=== PATIENT | male | born 1985 | race Caucasian/White ===

== ENCOUNTER 2016-07-20 20:14 | Emergency (ER) | payer MEDICAID ==
[2016-07-20] MEDS ORDERED: Ondansetron 4 MG/2 ML SDV IVPUSH ONE (22:27)
--- NOTE | 2016-07-20 22:28 | EDM.PDOC ---
ED HISTORY OF PRESENT ILLNESS - General Chief Complaint: Respiratory Problem Stated Complaint: FLU SYMPTOMS,FVER/CHILLS, VOMITING Time Seen by Provider: 07/20/16 22:27 Source: Reports: Patient, Family History Limitations: Reports: No limitations - History of Present Illness INITIAL COMMENTS - FREE TEXT/NARRATIVE: pt has been having marked vomiting and diarrhea. He has been spiking temps to 102. He has alot of body aches. Timing/Duration: Reports: Day(s):, Other ( pt got sick on thursday. ) Severity: moderate Location, General: Reports: abdomen, generalized Associated Symptoms: Reports: cough, fever/chills, loss of appetite, nausea/ vomiting, other ( diarhea) - Related Data Allergies/ADRs: Allergies Allergy/AdvReac Type Severity Reaction Status Date / Time Penicillins Allergy Hives Verified 01/07/16 19:43 Home Meds: Home Meds Ibuprofen 800 mg PO ASDIRECTED PRN 01/07/16 [History] Past Medical History Gastrointestinal History: Reports: GERD Musculoskeletal History: Reports: Arthritis, Back pain, chronic Neurological History: Reports: Concussion Psychiatric History: Reports: ADD, ADHD, Bipolar, Depression, Schizophrenia - Infectious Disease History Infectious Disease History: Reports: Chicken pox, Shingles Social & Family History - Tobacco Use Smoking Status *Q: Current Every Day Smoker Years of Tobacco use: 14 Packs/Tins Daily: 1 - Caffeine Use Caffeine Use: Reports: Soda - Alcohol Use Days Per Week of Alcohol Use: 1 Number of Drinks Per Day: 1 Total Drinks Per Week: 1 - Recreational Drug Use Recreational Drug Use: Yes Drug Use in Last 12 Months: Yes Recreational Drug Type: Reports: Marijuana/Hashish Recreational Drug Use Frequency: Monthly ED ROS GENERAL - Review of Systems Review Of Systems: See Below Constitutional: Reports: fever, chills, malaise, weakness HEENT: Reports: No symptoms Respiratory: Reports: No Symptoms Cardiovascular: Reports: No symptoms Endocrine: Reports: no symptoms GI/Abdominal: Reports: Diarrhea, Nausea, Vomiting Musculoskeletal: Reports: muscle pain, muscle stiffness ED EXAM, GENERAL - Physical Exam Exam: See Below Free Text/Narrative:: pt has a fever and total body pain Exam Limited By: No limitations General Appearance: alert, anxious, moderate distress Ears: normal TMs Nose: normal inspection Throat/Mouth: Normal inspection Head: atraumatic Neck: normal inspection Respiratory/Chest: no respiratory distress Cardiovascular: regular rate, rhythm, tachycardia GI/Abdominal: soft (Male) Exam: Deferred Rectal (Males) Exam: Deferred Back Exam: normal inspection Extremities: normal inspection Neurological: alert, oriented, normal cognition Course - Vital Signs Last Recorded V/S: Last Vital Signs Temp 37.2 C 07/21/16 01:35 Pulse 80 07/20/16 23:05 Resp 20 07/20/16 23:05 BP 124/51 L 07/20/16 23:05 Pulse Ox 96 07/20/16 23:05 - Orders/Labs/Meds Orders: Active Orders 24 hr Category Date Time Status CULTURE STREP A CONFIRMATION [] Stat Lab 07/21/16 00:54 Results STREP SCRN A RAPID W CULT CONF [RM] Stat Lab 07/21/16 00:54 Results UA W/MICROSCOPIC [URIN] Urgent Lab 07/20/16 22:26 Uncollected Sodium Chloride 0.9% [Normal Saline] 1,000 ml Med 07/20/16 22:30 Active IV ASDIRECTED Sodium Chloride 0.9% [Normal Saline] 1,000 ml Med 07/20/16 23:45 Active IV ASDIRECTED Medication Orders Sodium Chloride (Normal Saline) 1,000 mls @ 999 mls/hr IV ASDIRECTED [facility] Last Admin: 07/20/16 22:40 Dose: 999 mls/hr Sodium Chloride (Normal Saline) 1,000 mls @ 999 mls/hr IV ASDIRECTED [facility] Last Admin: 07/20/16 23:49 Dose: 999 mls/hr Labs: Laboratory Tests 07/20/16 07/20/16 Range/Units 22:43 22:43 WBC 5.0 (4.5-11.0) K/uL RBC 5.02 (4.30-5.90) M/uL Hgb 15.5 H (12.0-15.0) g/dL Hct 43.8 (40.0-54.0) % MCV 87 (80-98) fL MCH 31 (27-31) pg MCHC 35 (32-36) % Plt Count 163 (150-400) K/uL Neut % (Auto) 75 H (36-66) % Lymph % (Auto) 14 L (24-44) % [place] % (Auto) 10 H (2-6) % Eos % (Auto) 0 L (2-4) % Baso % (Auto) 0 (0-1) % Sodium 138 L (140-148) mmol/L Potassium 4.3 (3.6-5.2) mmol/L Chloride 100 (100-108) mmol/L Carbon Dioxide 28 (21-32) mmol/L Anion Gap 14.3 H (5.0-14.0) mmol/L BUN 13 (7-18) mg/dL Creatinine 1.1 (0.8-1.3) mg/dL Est Cr Clr Drug Dosing 105.65 mL/min Estimated GFR (MDRD) > 60 (>60) Glucose 111 H (74-106) mg/dL Calcium 8.7 (8.5-10.1) mg/dL Total Bilirubin 0.5 (0.2-1.0) mg/dL AST 17 (15-37) U/L ALT 18 (12-78) U/L Alkaline Phosphatase 94 (46-116) U/L Total Protein 7.7 (6.4-8.2) g/dL Albumin 4.1 (3.4-5.0) g/dL Globulin 3.6 H (2.3-3.5) g/dL Albumin/Globulin Ratio 1.1 L (1.2-2.2) Meds: Medications Generic Name Dose Route Start Last Admin Trade Name Freq PRN Reason Stop Dose Admin Sodium Chloride 1,000 mls @ 999 mls/hr 07/20/16 22:30 07/20/16 22:40 Normal Saline IV 999 mls/hr ASDIRECTED ANA Administration Sodium Chloride 1,000 mls @ 999 mls/hr 07/20/16 23:45 07/20/16 23:49 Normal Saline IV 999 mls/hr ASDIRECTED ANA Administration Discontinued Medications Generic Name Dose Route Start Last Admin Trade Name Freq PRN Reason Stop Dose Admin Acetaminophen 650 mg 07/20/16 23:08 07/20/16 23:13 Tylenol PO 07/20/16 23:09 650 mg NOW ONE Administration Ondansetron HCl 4 mg 07/20/16 22:27 07/20/16 22:44 Zofran IVPUSH 07/20/16 22:28 4 mg ONETIME ONE Administration - Re-Assessments/Exams Free Text/Narrative Re-Assessment/Exam: 07/21/16 02:26 pt had a normal wbc and had a pos influ b. He was given 2 liters of fluid and zoforan and he was given tylenol 650. he felt better. He was discharged with some subling zoforan. He had been ill too long to use tamaflu. Departure - Departure Time of Disposition: 01:30 Disposition: Home, Self-Care 01 Condition: fair Clinical Impression: Influenza B, Dehydration Instructions: Influenza, Adult, [id number], Dehydration, Adult Referrals: PCP,None [Primary Care Provider] - Forms: ED Department Discharge Care Plan Goals: ZOFORAN 4MG SUBLING Q6H PRN FOR NAUSEA, CLEAR LIQUID DIET AND ADVANCE DIET TOLERATED. TYLENOL 650 Q6H PRN FOR A TEMP. - My Orders Last 24 Hours: My Active Orders 07/20/16 22:26 UA W/MICROSCOPIC [URIN] Urgent 07/20/16 22:30 Sodium Chloride 0.9% [Normal Saline] 1,000 ml IV ASDIRECTED 07/20/16 23:45 Sodium Chloride 0.9% [Normal Saline] 1,000 ml IV ASDIRECTED 07/21/16 00:54 CULTURE STREP A CONFIRMATION [RM] Stat STREP SCRN A RAPID W CULT CONF [RM] Stat - Assessment/Plan Last 24 Hours: My Active Orders 07/20/16 22:26 UA W/MICROSCOPIC [URIN] Urgent 07/20/16 22:30 Sodium Chloride 0.9% [Normal Saline] 1,000 ml IV ASDIRECTED 07/20/16 23:45 Sodium Chloride 0.9% [Normal Saline] 1,000 ml IV ASDIRECTED 07/21/16 00:54 CULTURE STREP A CONFIRMATION [RM] Stat STREP SCRN A RAPID W CULT CONF [RM] Stat
[2016-07-20] MEDS ORDERED: Sodium Chloride 0.9% 1,000 ML IV SCH ×2 (22:30→23:45)
[2016-07-20 23:06] VITALS: BP 124/51
[2016-07-20] MEDS ORDERED: Acetaminophen 325 MG Tab PO ONE (23:08)
== END 2016-07-21 02:15 | disposition home or self-care (01) ==
LOC: JP.ED 20:14
DX: J10.1 Influenza due to other identified influenza virus with other respiratory manifestations (principal); E86.0 Dehydration; F17.210 Nicotine dependence, cigarettes, uncomplicated; Z88.0 Allergy status to penicillin
CPT/HCPCS: 36415; 80053; 85025; 87081; 87430; 87804; 96361; 96374; 99284; A9270; J2405; J7040

== ENCOUNTER 2016-11-03 12:45 | Emergency (ER) | payer MEDICAID ==
[2016-11-03 12:57] VITALS: BP 135/45
[2016-11-03] MEDS ORDERED: Ondansetron 4 MG/2 ML SDV ONE (12:58)
[2016-11-03] MEDS ORDERED: LORazepam 2 MG/ML MDV IVPUSH ONE (13:14)
[2016-11-03] MEDS ORDERED: Sodium Chloride 0.9% 1,000 ML IV ONE (13:14)
[2016-11-03] MEDS: Sodium Chloride 0.9% 10 ML Syringe FLUSH PRN ×2 (13:22→13:51)
[2016-11-03] MEDS: Lactated Ringers 1,000 ML IV SCH ×2 (13:23→13:52)
[2016-11-03] MEDS ORDERED: Pantoprazole 40 MG Vial ONE (13:30)
[2016-11-03] MEDS ORDERED: Ondansetron 4 MG/2 ML SDV IVPUSH ONE ×2 (13:31→14:54)
--- NOTE | 2016-11-03 13:40 | EDM.PDOC ---
ED HPI GENERAL MEDICAL PROBLEM - General Chief Complaint: Abdominal Pain Stated Complaint: VOMITING Time Seen by Provider: 11/03/16 13:08 Source of Information: Reports: Patient History Limitations: Reports: No Limitations - History of Present Illness INITIAL COMMENTS - FREE TEXT/NARRATIVE: Patient presents with acute onset of nausea, vomiting and abdominal pain since 2100 last night. He has had 6 emesis since that time. He last ate fried chicken from grocery store [employer]. Significant family history of Crohn's disease. Onset: Sudden Onset Date: 11/02/16 Onset Time: 21:00 Quality: Reports: Burning, Stabbing Severity: Severe Improves with: Reports: None, Other (Patient reports nausea and pain improves with vomiting. Patient continues to attempt to make himself vomit while in ER room. ) Worsens with: Reports: None Associated Symptoms: Reports: Fever/Chills, Nausea/Vomiting, Other. Denies: Headaches - Related Data Allergies Allergy/AdvReac Type Severity Reaction Status Date / Time Penicillins Allergy Hives Verified 01/07/16 19:43 Home Meds: Home Meds NK [No Known Home Meds] 11/03/16 [History] Past Medical History - Past Health History Medical/Surgical History: Denies Medical/Surgical History Gastrointestinal History: Reports: GERD Other Gastrointestinal History: Abdominal pain, GERD Musculoskeletal History: Reports: Arthritis, Back Pain, Chronic Neurological History: Reports: Concussion Psychiatric History: Reports: ADD, ADHD, Bipolar, Depression, Schizophrenia - Infectious Disease History Infectious Disease History: Reports: Chicken Pox, Shingles Social & Family History - Tobacco Use Smoking Status *Q: Current Every Day Smoker Years of Tobacco use: 20 Packs/Tins Daily: 1 - Caffeine Use Caffeine Use: Reports: Soda - Alcohol Use Days Per Week of Alcohol Use: 1 Number of Drinks Per Day: 1 Total Drinks Per Week: 1 - Recreational Drug Use Recreational Drug Use: Yes Drug Use in Last 12 Months: Yes Recreational Drug Type: Reports: Marijuana/Hashish Recreational Drug Use Frequency: Monthly ED ROS GENERAL - Review of Systems Review Of Systems: See Below Constitutional: Reports: Fever, Chills, Night Sweats, Diaphoresis HEENT: Reports: No Symptoms Respiratory: Denies: Shortness of Breath, Wheezing, Cough, Sputum Cardiovascular: Denies: Chest Pain, Blood Pressure Problem, Dyspnea on Exertion , Edema, Palpitations Endocrine: Reports: No Symptoms GI/Abdominal: Reports: Abdominal Pain, Nausea, Vomiting. Denies: Black Stool, Bloody Stool, Constipation, Diarrhea, Difficulty Swallowing, Distension, Hematemesis : Denies: Dysuria, Flank Pain, Frequency, Hematuria, Pain, Urgency Musculoskeletal: Reports: No Symptoms Skin: Reports: No Symptoms Neurological: Denies: Confusion, Dizziness, Headache, Numbness, Tingling, Weakness Psychiatric: Denies: Agitation, Anxiety Hematologic/Lymphatic: Reports: No Symptoms Immunologic: Reports: No Symptoms ED EXAM, GI/ABD - Physical Exam Exam: See Below Text/Narrative:: Landon is a 31 year old male presenting with severe abdominal pain, nausea, vomiting since yesterday at 2100. Exam Limited By: No Limitations General Appearance: Alert, Anxious, Moderate Distress, Severe Distress, Active Emesis Eyes: Bilateral: EOMI Ears: Normal External Exam, Normal Canal, Hearing Grossly Normal, Normal TMs Nose: Normal Inspection, Normal Mucosa, No Blood Throat/Mouth: Normal Inspection, Normal Lips, Normal Oropharynx, Normal Voice, No Airway Compromise, Other (Patient missing multiple teeth) Head: Atraumatic, Normocephalic Neck: Normal Inspection, Supple, Non-Tender, Full Range of Motion Respiratory/Chest: No Respiratory Distress, Lungs Clear, Normal Breath Sounds, No Accessory Muscle Use, Chest Non-Tender Cardiovascular: Normal Peripheral Pulses, Regular Rate, Rhythm, No Edema, No Gallop, No Murmur, No Rub GI/Abdominal: Normal Bowel Sounds, Soft, Non-Tender, No Organomegaly, No Abnormal Bruit, No Mass Back Exam: Normal Inspection, Full Range of Motion. No: CVA Tenderness (R), CVA Tenderness (L) Extremities: Normal Inspection, Normal Range of Motion, Non-Tender, No Pedal Edema, Normal Capillary Refill Neurological: Alert, Oriented, CN II-XII Intact, No Motor/Sensory Deficits Psychiatric: Anxious, Other (Hyperventilating at times, several attempts to make himself vomit. ) Skin Exam: Intact, Normal Color, No Rash, Diaphoretic. No: Ecchymosis, Erythema , Pallor, Petechiae, Rash Lymphatic: No Adenopathy Course - Vital Signs Last Recorded V/S: Last Vital Signs Temp 35.7 C 11/03/16 13:11 Pulse 91 11/03/16 13:11 Resp 18 11/03/16 13:11 BP 135/45 L 11/03/16 13:11 Pulse Ox 100 11/03/16 13:11 - Orders/Labs/Meds Orders: Active Orders 24 hr Category Date Time Status Saline Lock Insert [OM.PC] Routine Oth 11/03/16 13:14 Ordered Labs: Laboratory Tests 11/03/16 11/03/16 11/03/16 Range/Units 13:40 13:40 13:40 WBC 10.6 (4.5-11.0) K/uL RBC 4.85 (4.30-5.90) M/uL Hgb 15.4 H (12.0-15.0) g/dL Hct 42.5 (40.0-54.0) % MCV 88 (80-98) fL MCH 32 H (27-31) pg MCHC 36 (32-36) % Plt Count 191 (150-400) K/uL Neut % (Auto) 82 H (36-66) % Lymph % (Auto) 12 L (24-44) % [place] % (Auto) 4 (2-6) % Eos % (Auto) 1 L (2-4) % Baso % (Auto) 1 (0-1) % ESR 9 (0-20) mm/hr Sodium 140 (140-148) mmol/L Potassium 4.3 (3.6-5.2) mmol/L Chloride 104 (100-108) mmol/L Carbon Dioxide 28 (21-32) mmol/L Anion Gap 8.3 (5.0-14.0) mmol/L BUN 14 (7-18) mg/dL Creatinine 1.1 (0.8-1.3) mg/dL Est Cr Clr Drug Dosing 113.37 mL/min Estimated GFR (MDRD) > 60 (>60) Glucose 132 H (74-106) mg/dL Calcium 9.4 (8.5-10.1) mg/dL Total Bilirubin 0.9 D (0.2-1.0) mg/dL AST 11 L (15-37) U/L ALT 13 (12-78) U/L Alkaline Phosphatase 99 (46-116) U/L C-Reactive Protein (0.0-0.3) mg/dL Total Protein 7.6 (6.4-8.2) g/dL Albumin 4.2 (3.4-5.0) g/dL Globulin 3.4 (2.3-3.5) g/dL Albumin/Globulin Ratio 1.2 (1.2-2.2) Amylase (25-115) U/L Lipase (73-393) U/L 11/03/16 11/03/16 Range/Units 13:40 13:40 WBC (4.5-11.0) K/uL RBC (4.30-5.90) M/uL Hgb (12.0-15.0) g/dL Hct (40.0-54.0) % MCV (80-98) fL MCH (27-31) pg MCHC (32-36) % Plt Count (150-400) K/uL Neut % (Auto) (36-66) % Lymph % (Auto) (24-44) % [place] % (Auto) (2-6) % Eos % (Auto) (2-4) % Baso % (Auto) (0-1) % ESR (0-20) mm/hr Sodium (140-148) mmol/L Potassium (3.6-5.2) mmol/L Chloride (100-108) mmol/L Carbon Dioxide (21-32) mmol/L Anion Gap (5.0-14.0) mmol/L BUN (7-18) mg/dL Creatinine (0.8-1.3) mg/dL Est Cr Clr Drug Dosing mL/min Estimated GFR (MDRD) (>60) Glucose (74-106) mg/dL Calcium (8.5-10.1) mg/dL Total Bilirubin (0.2-1.0) mg/dL AST (15-37) U/L ALT (12-78) U/L Alkaline Phosphatase (46-116) U/L C-Reactive Protein 0.28 (0.0-0.3) mg/dL Total Protein (6.4-8.2) g/dL Albumin (3.4-5.0) g/dL Globulin (2.3-3.5) g/dL Albumin/Globulin Ratio (1.2-2.2) Amylase 96 (25-115) U/L Lipase 172 (73-393) U/L Meds: Medications Discontinued Medications Generic Name Dose Route Start Last Admin Trade Name Freq PRN Reason Stop Dose Admin Hydromorphone HCl 1 mg 11/03/16 14:50 11/03/16 15:04 Dilaudid IVPUSH 11/03/16 14:51 1 mg ONETIME ONE Administration Sodium Chloride 1,000 mls @ 999 mls/hr 11/03/16 13:14 Normal Saline IV 11/03/16 14:14 .BOLUS ONE Lactated Ringer's 1,000 mls @ 999 mls/hr 11/03/16 13:15 11/03/16 13:52 Ringers, Lactated IV 999 mls/hr BOLUS ANA Administration Lactated Ringer's 1,000 mls @ 999 mls/hr 11/03/16 14:36 Ringers, Lactated IV 11/03/16 15:36 BOLUS ONE Lorazepam 1 mg 11/03/16 13:14 11/03/16 13:23 Ativan IVPUSH 11/03/16 13:15 1 mg ONETIME ONE Administration Lorazepam 1 mg 11/03/16 16:22 11/03/16 16:49 Ativan IM 11/03/16 16:23 Not Given ONETIME ONE Ondansetron HCl Confirm 11/03/16 12:58 Zofran Administered 11/03/16 12:59 Dose 4 mg .ROUTE .STK-MED ONE Ondansetron HCl 4 mg 11/03/16 13:31 11/03/16 13:50 Zofran IVPUSH 11/03/16 13:32 4 mg ONETIME ONE Administration Ondansetron HCl 4 mg 11/03/16 14:54 11/03/16 15:04 Zofran IVPUSH 11/03/16 14:55 4 mg ONETIME ONE Administration Pantoprazole Sodium Confirm 11/03/16 13:30 Protonix Iv Administered 11/03/16 13:31 Dose 40 mg .ROUTE .STK-MED ONE Pantoprazole Sodium 40 mg 11/03/16 14:00 11/03/16 14:08 Protonix Iv IVPUSH 11/03/16 14:01 40 mg ONETIME ONE Administration Sodium Chloride 10 ml 11/03/16 13:14 11/03/16 13:51 Saline Flush FLUSH 10 ml ASDIRECTED PRN Administration Keep Vein Open - Re-Assessments/Exams Free Text/Narrative Re-Assessment/Exam: 11/03/16 13:05 Upon arrival, patient IV access obtain, IV fluids initiated, IV zofran and lorazepam administered. Free Text/Narrative Re-Assessment/Exam: 11/03/16 16:10 Nausea and vomiting improved. Abdominal pain resolved. Lab work reviewed with patient. He will be discharged to home. Departure - Departure Time of Disposition: 16:10 Disposition: Home, Self-Care 01 Condition: Fair Clinical Impression: Abdominal pain, Vomiting - Discharge Information Instructions: Abdominal Pain, Adult, [id number], Viral Gastroenteritis, Adult , [id number] Referrals: PCP,None [Primary Care Provider] - Forms: ED Department Discharge Additional Instructions: You suffered from nausea, vomiting and abdominal pain, most likely related to eating something that upset your stomach. All of your lab work was unremarkable. Eat a bland diet, drink plenty of fluids. Drink gatorade or powerade. It would be best for you to follow up and make an appointment to establish care with a primary provider for any other work-up of abdominal pain. Return for worsening, issues or concerns. Hard copy prescriptions for: zofran 4mg PO every 8 hours as needed for nausea hydrocodone 5/325mg one tablet three times a day for 2 days as needed for pain. - My Orders Last 24 Hours: My Active Orders 11/03/16 13:14 Saline Lock Insert [OM.PC] Routine - Assessment/Plan Last 24 Hours: My Active Orders 11/03/16 13:14 Saline Lock Insert [OM.PC] Routine Assessment:: Abdominal pain, vomiting. Plan: Nausea, vomiting and abdominal pain, most likely related to eating something that upset his stomach. All of lab work was unremarkable. Instructed to eat a bland diet, drink plenty of fluids. Drink gatorade or powerade. It would be best for him to follow up and make an appointment to establish care with a primary provider for any other work-up of abdominal pain. Return for worsening, issues or concerns. He was advised to stop use of marijuana, to not drink alcohol or use tobacco. Hard copy prescriptions for: zofran 4mg PO every 8 hours as needed for nausea #6 hydrocodone 5/325mg one tablet three times a day for 2 days as needed for pain # 6
[2016-11-03] MEDS ORDERED: Pantoprazole 40 MG Vial IVPUSH ONE (14:00)
[2016-11-03] MEDS ORDERED: Lactated Ringers 1,000 ML IV ONE (14:36)
[2016-11-03] MEDS ORDERED: HYDROmorphone 1 MG/ML Syringe IVPUSH ONE (14:50)
[2016-11-03] MEDS ORDERED: LORazepam 2 MG/ML MDV IM ONE (16:22)
== END 2016-11-03 16:56 | disposition home or self-care (01) ==
LOC: JP.ED 12:45
DX: R10.9 Unspecified abdominal pain (principal); R11.2 Nausea with vomiting, unspecified; F17.210 Nicotine dependence, cigarettes, uncomplicated; K21.9 Gastro-esophageal reflux disease without esophagitis; F90.9 Attention-deficit hyperactivity disorder, unspecified type; F32.9 Major depressive disorder, single episode, unspecified; Z88.0 Allergy status to penicillin
CPT/HCPCS: 36415; 80053; 82150; 83690; 85025; 85651; 86140; 96361; 96374; 96375; 96376; 99284; C9113; J1170; J2060; J2405; J7050; J7120; 99283

== ENCOUNTER 2017-07-31 08:00 | Emergency (ER) | payer MEDICAID ==
[2017-07-31] MEDS ORDERED: Sodium Chloride 0.9% 10 ML Syringe FLUSH PRN (08:35)
[2017-07-31] MEDS ORDERED: Prochlorperazine 10 MG/2 ML SDV IVPUSH ONE (08:36)
--- NOTE | 2017-07-31 08:39 | EDM.PDOC ---
ED HPI GENERAL MEDICAL PROBLEM - General Chief Complaint: Gastrointestinal Problem Stated Complaint: VOMITING/CHEST PAIN Time Seen by Provider: 07/31/17 08:19 Source of Information: Reports: Patient, Family, Old Records, RN Notes Reviewed History Limitations: Reports: No Limitations - History of Present Illness INITIAL COMMENTS - FREE TEXT/NARRATIVE: 32-year-old gentleman presents to the emergency department today complaint of nausea and vomiting, he believes this is related to a sandwich he had last night however other members who ate the same food or not ill. He does admit to cannabis use last night and admits to warm showers helping. He has used Zofran in the past to control his nausea and vomiting. He states he's had 6 or 7 episodes like this where he has been hospitalized for intractable nausea and vomiting. Upper Abdominal Pain Score (Numeric/FACES): 8 - Related Data Allergies Allergy/AdvReac Type Severity Reaction Status Date / Time Penicillins Allergy Hives Verified 07/31/17 08:09 Home Meds: Home Meds Omeprazole Magnesium [Prilosec Otc] 1 tab PO DAILY 07/31/17 [History] Ondansetron HCl [Ondansetron] 1 tab SL ASDIRECTED 07/31/17 [History] Past Medical History Cardiovascular History: Reports: Heart Murmur Gastrointestinal History: Reports: GERD Other Gastrointestinal History: GERD, story's esophagus Musculoskeletal History: Reports: Arthritis, Back Pain, Chronic, Fracture Neurological History: Reports: Concussion Psychiatric History: Reports: ADD, ADHD, Bipolar, Depression, Schizophrenia - Infectious Disease History Infectious Disease History: Reports: Chicken Pox, Shingles Social & Family History - Tobacco Use Smoking Status *Q: Heavy Tobacco Smoker Years of Tobacco use: 10 Packs/Tins Daily: 1 - Caffeine Use Caffeine Use: Reports: Soda - Alcohol Use Days Per Week of Alcohol Use: 1 Number of Drinks Per Day: 1 Total Drinks Per Week: 1 - Recreational Drug Use Recreational Drug Use: No Drug Use in Last 12 Months: Yes Recreational Drug Type: Reports: Marijuana/Hashish Recreational Drug Use Frequency: Monthly ED ROS GENERAL - Review of Systems Review Of Systems: See Below Constitutional: Denies: Fever, Chills HEENT: Reports: No Symptoms Respiratory: Reports: No Symptoms Cardiovascular: Reports: No Symptoms GI/Abdominal: Reports: Abdominal Pain, Nausea, Vomiting : Reports: No Symptoms Musculoskeletal: Reports: No Symptoms Skin: Reports: No Symptoms Neurological: Reports: No Symptoms ED EXAM, GI/ABD - Physical Exam Exam: See Below Exam Limited By: No Limitations General Appearance: Alert, Mild Distress Throat/Mouth: Normal Inspection, Normal Lips, Normal Gums, Normal Oropharynx, Normal Voice, No Airway Compromise, Other (No teeth upper) Head: Atraumatic, Normocephalic Neck: Normal Inspection, Supple, Non-Tender, Full Range of Motion Respiratory/Chest: No Respiratory Distress, Lungs Clear, Normal Breath Sounds, No Accessory Muscle Use, Chest Non-Tender Cardiovascular: Regular Rate, Rhythm, No Murmur GI/Abdominal Exam: Soft, Non-Tender Course - Vital Signs Last Recorded V/S: Last Vital Signs Temp 94.4 F L 07/31/17 08:05 Pulse 51 L 07/31/17 10:16 Resp 16 07/31/17 10:16 BP 131/82 07/31/17 10:16 Pulse Ox 93 L 07/31/17 10:16 - Orders/Labs/Meds Orders: Active Orders 24 hr Category Date Time Status Peripheral IV Care [RC] . DIRECTED Care 07/31/17 08:35 Active Lactated Ringers [Ringers, Lactated] 1,000 ml Med 07/31/17 08:45 Active IV ASDIRECTED Sodium Chloride 0.9% [Saline Flush] Med 07/31/17 08:35 Active 10 ml FLUSH ASDIRECTED PRN Peripheral IV Insertion Adult [OM.PC] Urgent Oth 07/31/17 08:35 Ordered Medication Orders Lactated Ringer's (Ringers, Lactated) 1,000 mls @ 999 mls/hr IV ASDIRECTED ANA Last Admin: 07/31/17 08:58 Dose: 999 mls/hr Sodium Chloride (Saline Flush) 10 ml FLUSH ASDIRECTED PRN PRN Reason: Keep Vein Open Last Admin: 07/31/17 08:58 Dose: 10 ml Labs: Laboratory Tests 07/31/17 07/31/17 07/31/17 Range/Units 08:51 08:51 08:51 WBC 14.9 H (4.5-11.0) K/uL RBC 5.08 (4.30-5.90) M/uL Hgb 16.2 H (12.0-15.0) g/dL Hct 44.6 (40.0-54.0) % MCV 88 (80-98) fL MCH 32 H (27-31) pg MCHC 36 (32-36) % Plt Count 255 (150-400) K/uL Neut % (Auto) 86 H (36-66) % Lymph % (Auto) 8 L (24-44) % [place] % (Auto) 5 (2-6) % Eos % (Auto) 1 L (2-4) % Baso % (Auto) 0 (0-1) % Sodium 143 (140-148) mmol/L Potassium 4.2 (3.6-5.2) mmol/L Chloride 103 (100-108) mmol/L Carbon Dioxide 27 (21-32) mmol/L Anion Gap 12.8 (5.0-14.0) mmol/L BUN 15 (7-18) mg/dL Creatinine 1.3 (0.8-1.3) mg/dL Est Cr Clr Drug Dosing 95.03 mL/min Estimated GFR (MDRD) > 60 (>60) Glucose 147 H (74-106) mg/dL Lactic Acid 3.1 H (0.4-2.0) mmol/L Calcium 9.4 (8.5-10.1) mg/dL Total Bilirubin 0.6 (0.2-1.0) mg/dL AST 14 L (15-37) U/L ALT 17 (12-78) U/L Alkaline Phosphatase 113 (46-116) U/L Total Protein 7.6 (6.4-8.2) g/dL Albumin 4.4 (3.4-5.0) g/dL Globulin 3.2 (2.3-3.5) g/dL Albumin/Globulin Ratio 1.4 (1.2-2.2) Lipase 95 (73-393) U/L Meds: Medications Generic Name Dose Route Start Last Admin Trade Name Freq PRN Reason Stop Dose Admin Lactated Ringer's 1,000 mls @ 999 mls/hr 07/31/17 08:45 07/31/17 08:58 Ringers, Lactated IV 999 mls/hr ASDIRECTED ANA Administration Sodium Chloride 10 ml 07/31/17 08:35 07/31/17 08:58 Saline Flush FLUSH 10 ml ASDIRECTED PRN Administration Keep Vein Open Discontinued Medications Generic Name Dose Route Start Last Admin Trade Name Abby PRN Reason Stop Dose Admin Lactated Ringer's 1,000 mls @ 999 mls/hr 07/31/17 10:02 07/31/17 10:15 Ringers, Lactated IV 07/31/17 11:02 999 mls/hr BOLUS ONE Administration Ketorolac Tromethamine 30 mg 07/31/17 10:02 07/31/17 10:13 Toradol IVPUSH 07/31/17 10:03 30 mg ONETIME ONE Administration Lorazepam 1 mg 07/31/17 10:02 07/31/17 10:12 Ativan IVPUSH 07/31/17 10:03 1 mg ONETIME ONE Administration Ondansetron HCl 4 mg 07/31/17 09:30 07/31/17 09:44 Zofran IVPUSH 07/31/17 09:31 4 mg ONETIME ONE Administration Prochlorperazine Edisylate 5 mg 07/31/17 08:36 07/31/17 08:55 Compazine IVPUSH 07/31/17 08:37 5 mg ONETIME ONE Administration Departure - Departure Time of Disposition: 11:23 Disposition: Home, Self-Care 01 Condition: Fair Clinical Impression: Cyclical vomiting Qualifiers: Vomiting Intractability: non-intractable Nausea presence: with nausea Qualified Code(s): G43.A0 - Cyclical vomiting, not intractable - Discharge Information Referrals: PCP,None [Primary Care Provider] - Forms: ED Department Discharge Additional Instructions: Use Zofran as needed to control nausea and vomiting symptoms, Please followup with your primary care provider in 3-5 days if not better, please call return to the emergency department with worsening of symptoms. - My Orders Last 24 Hours: My Active Orders 07/31/17 08:35 Peripheral IV Care [RC] . DIRECTED Sodium Chloride 0.9% [Saline Flush] 10 ml FLUSH ASDIRECTED PRN Peripheral IV Insertion Adult [OM.PC] Urgent 07/31/17 08:45 Lactated Ringers [Ringers, Lactated] 1,000 ml IV ASDIRECTED - Assessment/Plan Last 24 Hours: My Active Orders 07/31/17 08:35 Peripheral IV Care [RC] . DIRECTED Sodium Chloride 0.9% [Saline Flush] 10 ml FLUSH ASDIRECTED PRN Peripheral IV Insertion Adult [OM.PC] Urgent 07/31/17 08:45 Lactated Ringers [Ringers, Lactated] 1,000 ml IV ASDIRECTED Plan: Assessment Acuity = acute Site and laterality = cannabis cyclical vomiting syndrome Etiology = THC Manifestations = nausea and vomiting generalized abdominal pain Location of injury = Home Lab values = WBC elevated at 14.9 consistent with leukocytosis, lactic acid elevated at 3.1 consistent lactic acidosis Plan He had good improvement 2 L of lactated Ringer's, 1 mg Ativan, 4 mg Zofran, 5 mg Compazine. He will be discharged home with Zofran 4 mg ODT 1 tablet by mouth every 8 hours when necessary total #10, also counseled him on cannabis use This note was dictated using [employer] voice recognition software please call with any questions on syntax or marimar.
[2017-07-31] MEDS ORDERED: Lactated Ringers 1,000 ML IV SCH (08:45)
[2017-07-31] MEDS ORDERED: Ondansetron 4 MG/2 ML SDV IVPUSH ONE (09:30)
[2017-07-31] MEDS ORDERED: LORazepam 2 MG/ML SDV IVPUSH ONE (10:02)
[2017-07-31] MEDS ORDERED: Ketorolac 30 MG/ML SDV IVPUSH ONE (10:02)
[2017-07-31] MEDS ORDERED: Lactated Ringers 1,000 ML IV ONE (10:02)
[2017-07-31 11:41] VITALS: BP 129/80
== END 2017-07-31 11:42 | disposition home or self-care (01) ==
LOC: JP.ED 08:00
DX: G43.A0 Cyclical vomiting, in migraine, not intractable (principal); K21.9 Gastro-esophageal reflux disease without esophagitis; F17.210 Nicotine dependence, cigarettes, uncomplicated; Z88.0 Allergy status to penicillin; Z79.899 Other long term (current) drug therapy
CPT/HCPCS: 36415; 80053; 83605; 83690; 85025; 96361; 96374; 96375; 99285; J0780; J1885; J2060; J2405; J7050; J7120

== ENCOUNTER 2017-07-31 21:33 | Emergency (ER) | payer MEDICAID ==
[2017-07-31] MEDS ORDERED: LORazepam 2 MG/ML SDV IVPUSH ONE (21:58)
[2017-07-31] MEDS ORDERED: Metoclopramide 10 MG/2 ML SDV IVPUSH ONE (21:58)
[2017-07-31] MEDS ORDERED: Alum Hydrox/Mag Hydrox/Simeth 15 ML, Lidocaine 2% 15 ML PO ONE ×2 (21:58)
[2017-07-31] MEDS ORDERED: Sodium Chloride 0.9% 1,000 ML IV SCH (22:00)
--- NOTE | 2017-07-31 22:00 | EDM.PDOC ---
ED HPI GENERAL MEDICAL PROBLEM - General Chief Complaint: Abdominal Pain Stated Complaint: illness Time Seen by Provider: 07/31/17 21:45 Source of Information: Reports: Patient, Family History Limitations: Reports: No Limitations - History of Present Illness INITIAL COMMENTS - FREE TEXT/NARRATIVE: 32-year-old male with chronic cyclic vomiting syndrome was treated earlier today but symptoms have returned and he is very uncomfortable. Actively retching , stomach cramps, very anxious. No fever. Severity: Moderate Associated Symptoms: Reports: Nausea/Vomiting Treatments [employer]: Reports: Other (see below) (Was in the emergency room earlier and obtained IV fluids, Ativan and pain control) abdominal pain Pain Score (Numeric/FACES): 9 - Related Data Allergies Allergy/AdvReac Type Severity Reaction Status Date / Time Penicillins Allergy Hives Verified 07/31/17 21:46 Home Meds: Home Meds Omeprazole Magnesium [Prilosec Otc] 20 mg PO DAILY 07/31/17 [History] Ondansetron HCl [Ondansetron] 4 tab SL ASDIRECTED 07/31/17 [History] Past Medical History Cardiovascular History: Reports: Heart Murmur Gastrointestinal History: Reports: GERD Other Gastrointestinal History: GERD, story's esophagus Musculoskeletal History: Reports: Arthritis, Back Pain, Chronic, Fracture Neurological History: Reports: Concussion Psychiatric History: Reports: ADD, ADHD, Bipolar, Depression, Schizophrenia - Infectious Disease History Infectious Disease History: Reports: Chicken Pox, Shingles Social & Family History - Tobacco Use Smoking Status *Q: Heavy Tobacco Smoker Years of Tobacco use: 10 Packs/Tins Daily: 1 - Caffeine Use Caffeine Use: Reports: Soda - Alcohol Use Days Per Week of Alcohol Use: 1 Number of Drinks Per Day: 1 Total Drinks Per Week: 1 - Recreational Drug Use Recreational Drug Use: Yes Drug Use in Last 12 Months: Yes Recreational Drug Type: Reports: Marijuana/Hashish Recreational Drug Use Frequency: Monthly ED ROS GENERAL - Review of Systems Review Of Systems: See Below Constitutional: Reports: Chills, Malaise HEENT: Reports: No Symptoms Respiratory: Denies: Shortness of Breath Cardiovascular: Denies: Chest Pain GI/Abdominal: Reports: Abdominal Pain, Decreased Appetite, Nausea, Vomiting : Reports: No Symptoms Skin: Reports: No Symptoms Neurological: Reports: No Symptoms. Denies: Headache ED EXAM, GI/ABD - Physical Exam Exam: See Below Exam Limited By: No Limitations General Appearance: Moderate Distress Eyes: Bilateral: Normal Appearance (Well-hydrated, no jaundice) Respiratory/Chest: No Respiratory Distress, Lungs Clear Cardiovascular: Regular Rate, Rhythm. No: Tachycardia GI/Abdominal Exam: Tender (Markedly tender with palpation with diffuse guarding of the entire abdomen), Abnormal Bowel Sounds (Bowel sounds are hypoactive) Neurological: Alert Psychiatric: Anxious Skin Exam: Warm, Dry Course - Vital Signs Last Recorded V/S: Last Vital Signs Temp 97.5 F 08/01/17 00:51 Pulse 69 08/01/17 00:51 Resp 28 H 07/31/17 21:47 BP 94/50 L 08/01/17 00:51 Pulse Ox 96 08/01/17 00:51 - Orders/Labs/Meds Orders: Active Orders 24 hr Category Date Time Status Sodium Chloride 0.9% [Normal Saline] 1,000 ml Med 07/31/17 22:00 Active IV ASDIRECTED Medication Orders Sodium Chloride (Normal Saline) 1,000 mls @ 1,000 mls/hr IV ASDIRECTED ANA Last Admin: 07/31/17 22:04 Dose: 1,000 mls/hr Meds: Medications Generic Name Dose Route Start Last Admin Trade Name Freq PRN Reason Stop Dose Admin Sodium Chloride 1,000 mls @ 1,000 mls/hr 07/31/17 22:00 07/31/17 22:04 Normal Saline IV 1,000 mls/hr ASDIRECTED ANA Administration Discontinued Medications Generic Name Dose Route Start Last Admin Trade Name Freq PRN Reason Stop Dose Admin Al Hydroxide/Mg Hydroxide 15 0 ml 07/31/17 21:58 07/31/17 22:17 ml/ Lidocaine HCl 15 ml PO 07/31/17 21:59 30 ml ONETIME ONE Administration Hydromorphone HCl 1 mg 07/31/17 22:01 07/31/17 22:25 Dilaudid IVPUSH 07/31/17 22:02 1 mg ONETIME ONE Administration Lorazepam 1 mg 07/31/17 21:58 07/31/17 22:19 Ativan IVPUSH 07/31/17 21:59 1 mg ONETIME ONE Administration Metoclopramide HCl 10 mg 07/31/17 21:58 07/31/17 22:12 Reglan IVPUSH 07/31/17 21:59 10 mg ONETIME ONE Administration - Re-Assessments/Exams Free Text/Narrative Re-Assessment/Exam: 08/01/17 01:27 Labs were not repeated from earlier. An IV was started, the patient was given 1 L of normal saline along with 1 mg of IV Dilaudid, 1 mg of IV Ativan, and 10 mg of IV Reglan. Patient fell asleep and slept soundly for the next 2 hours and was nearly asymptomatic when he awoke. Departure - Departure Time of Disposition: 01:28 Disposition: Home, Self-Care 01 Condition: Good Clinical Impression: Cyclical vomiting Qualifiers: Vomiting Intractability: non-intractable Nausea presence: with nausea Qualified Code(s): G43.A0 - Cyclical vomiting, not intractable - Discharge Information Instructions: Nausea and Vomiting, Adult, [id number] Referrals: PCP,None [Primary Care Provider] - Forms: ED Department Discharge Care Plan Goals: Consider obtaining regular provider here in town, call for an appointment next week. Discussed the possibility of amitriptyline for preventative treatment. - My Orders Last 24 Hours: My Active Orders 07/31/17 22:00 Sodium Chloride 0.9% [Normal Saline] 1,000 ml IV ASDIRECTED - Assessment/Plan Last 24 Hours: My Active Orders 07/31/17 22:00 Sodium Chloride 0.9% [Normal Saline] 1,000 ml IV ASDIRECTED
[2017-07-31] MEDS ORDERED: HYDROmorphone 1 MG/ML Syringe IVPUSH ONE (22:01)
[2017-08-01 00:52] VITALS: BP 94/50
== END 2017-08-01 01:30 | disposition home or self-care (01) ==
LOC: JP.ED 21:33
DX: G43.A0 Cyclical vomiting, in migraine, not intractable (principal); K21.9 Gastro-esophageal reflux disease without esophagitis; F17.210 Nicotine dependence, cigarettes, uncomplicated; F31.9 Bipolar disorder, unspecified; F90.9 Attention-deficit hyperactivity disorder, unspecified type; Z88.0 Allergy status to penicillin; Z79.899 Other long term (current) drug therapy
CPT/HCPCS: 96361; 96374; 96375; 99284; A9270; J1170; J2060; J2765; J7040

== ENCOUNTER 2018-07-13 06:47 | Emergency (ER) | payer MEDICAID ==
[2018-07-13 07:03] VITALS: BP 124/87
[2018-07-13] MEDS ORDERED: Metoclopramide 10 MG/2 ML SDV IVPUSH ONE (07:21)
[2018-07-13] MEDS ORDERED: LORazepam 2 MG/ML SDV IVPUSH ONE (07:21)
--- NOTE | 2018-07-13 07:29 | EDM.PDOC ---
ED HPI GENERAL MEDICAL PROBLEM - General Chief Complaint: Gastrointestinal Problem Stated Complaint: HEADACHE,DEHYDRATION Time Seen by Provider: 07/13/18 07:18 Source of Information: Reports: Patient History Limitations: Reports: No Limitations - History of Present Illness INITIAL COMMENTS - FREE TEXT/NARRATIVE: 33-year-old male with cyclic vomiting syndrome has had symptoms for the last 48 hours. They can be brought on by stress, and he has had a "hard winter" losing his home and car. [place]. He has not used any marijuana or other street drugs for the past month. He feels feverish and chilled, no diarrhea. Main concern is persistent abdominal cramps and vomiting over the past 36 hours. Onset: Gradual Duration: Hour(s): (36 hours) Location: Reports: Abdomen Associated Symptoms: Reports: Fever/Chills, Loss of Appetite, Malaise, Nausea/ Vomiting, Weakness Abdomen Pain Score (Numeric/FACES): 8 - Related Data Allergies Allergy/AdvReac Type Severity Reaction Status Date / Time Penicillins Allergy Hives Verified 07/31/17 21:46 Home Meds: Home Meds Omeprazole Magnesium [Prilosec Otc] 20 mg PO DAILY 07/31/17 [History] Past Medical History Cardiovascular History: Reports: Heart Murmur Gastrointestinal History: Reports: GERD Other Gastrointestinal History: GERD, story's esophagus Musculoskeletal History: Reports: Arthritis, Back Pain, Chronic, Fracture Neurological History: Reports: Concussion Psychiatric History: Reports: ADD, ADHD, Bipolar, Depression, Schizophrenia - Infectious Disease History Infectious Disease History: Reports: Chicken Pox, Shingles Social & Family History - Tobacco Use Smoking Status *Q: Current Every Day Smoker Years of Tobacco use: 20 Packs/Tins Daily: 0.5 - Caffeine Use Caffeine Use: Reports: Coffee, Soda - Recreational Drug Use Recreational Drug Use: Yes Recreational Drug Type: Reports: Marijuana/Hashish ED ROS GENERAL - Review of Systems Review Of Systems: See Below Constitutional: Reports: Fever, Chills, Malaise, Weakness, Decreased Appetite HEENT: Reports: No Symptoms Respiratory: Denies: Shortness of Breath, Cough Cardiovascular: Denies: Chest Pain GI/Abdominal: Reports: Abdominal Pain, Nausea, Vomiting. Denies: Constipation, Diarrhea : Reports: No Symptoms Musculoskeletal: Reports: Other (Some generalized body aches) Skin: Reports: No Symptoms Neurological: Reports: Headache ED EXAM, GI/ABD - Physical Exam Exam: See Below Exam Limited By: No Limitations General Appearance: Alert, Mild Distress (Looks fairly uncomfortable, intermittent active retching) Eyes: Bilateral: Normal Appearance (Hydration appears adequate, no jaundice) Throat/Mouth: Normal Inspection Head: Atraumatic Neck: Supple Respiratory/Chest: No Respiratory Distress, Lungs Clear Cardiovascular: Regular Rate, Rhythm. No: Tachycardia GI/Abdominal Exam: Normal Bowel Sounds, Tender (Very tender to palpation, especially across the upper abdomen with mild guarding) Extremities: No: Pedal Edema Neurological: Alert, Oriented Psychiatric: Depressed Mood, Flat Affect Skin Exam: Warm, Dry Course - Vital Signs Last Recorded V/S: Last Vital Signs Temp 94.2 F L 07/13/18 07:07 Pulse 97 07/13/18 07:07 Resp 18 07/13/18 07:07 BP 124/87 07/13/18 07:07 Pulse Ox 98 07/13/18 07:07 - Orders/Labs/Meds Labs: Laboratory Tests 07/13/18 07/13/18 Range/Units 07:30 07:30 WBC 7.5 (4.5-11.0) K/uL RBC 5.54 (4.30-5.90) M/uL Hgb 16.7 H (12.0-15.0) g/dL Hct 48.2 (40.0-54.0) % MCV 87 (80-98) fL MCH 30 (27-31) pg MCHC 35 (32-36) % Plt Count 214 (150-400) K/uL Neut % (Auto) 78 H (36-66) % Lymph % (Auto) 9 L (24-44) % [place] % (Auto) 12 H (2-6) % Eos % (Auto) 0 L (2-4) % Baso % (Auto) 0 (0-1) % Sodium 133 L (140-148) mmol/L Potassium 5.3 H (3.6-5.2) mmol/L Chloride 94 L (100-108) mmol/L Carbon Dioxide 29 (21-32) mmol/L Anion Gap 15.3 H (5.0-14.0) mmol/L BUN 17 (7-18) mg/dL Creatinine 1.1 (0.8-1.3) mg/dL Est Cr Clr Drug Dosing 102.23 mL/min Estimated GFR (MDRD) > 60 (>60) Glucose 118 H (74-106) mg/dL Calcium 10.2 H (8.5-10.1) mg/dL Lipase 274 (73-393) U/L Meds: Medications Discontinued Medications Generic Name Dose Route Start Last Admin Trade Name Abby PRN Reason Stop Dose Admin Sodium Chloride 1,000 mls @ 1,000 mls/hr 07/13/18 07:30 07/13/18 08:46 Normal Saline IV 1,000 mls/hr ASDIRECTED ANA Administration Sodium Chloride 1,000 mls @ 1,000 mls/hr 07/13/18 08:45 Normal Saline IV ASDIRECTED ANA Lorazepam 1 mg 07/13/18 07:21 07/13/18 07:40 Ativan IVPUSH 07/13/18 07:22 1 mg ONETIME ONE Administration Metoclopramide HCl 10 mg 07/13/18 07:21 07/13/18 07:40 Reglan IVPUSH 07/13/18 07:22 10 mg ONETIME ONE Administration - Re-Assessments/Exams Free Text/Narrative Re-Assessment/Exam: 07/13/18 07:28 IV was started, patient will be given 1 L normal saline, 1 mg of Ativan, and 10 mg of Reglan. This is very similar to past treatments that have worked for him, I did see this patient one year ago. CBC BMP and lipase were drawn to rule out pancreatitis or other more serious issue. 07/13/18 09:16 Labs returned reassuring, white count was normal lipase normal. Patient fell asleep after the medications and slept soundly, while he was sleeping he was given 2 L of normal saline. 07/13/18 09:44 After the second liter fluid the patient woke up and felt much better. He'll be discharged. Departure - Departure Time of Disposition: 09:51 Disposition: Home, Self-Care 01 Condition: Good Clinical Impression: Nausea and vomiting in adult - Discharge Information Instructions: Nausea and Vomiting, Adult Referrals: PCP,None [Primary Care Provider] - Forms: ED Department Discharge Care Plan Goals: Advance diet slowly today and increase activity as tolerated. Return anytime if worsening.
[2018-07-13] MEDS: Sodium Chloride 0.9% 1,000 ML IV SCH ×2 (07:39→08:46)
[2018-07-13] MEDS ORDERED: Sodium Chloride 0.9% 1,000 ML IV SCH (08:45)
== END 2018-07-13 10:06 | disposition home or self-care (01) ==
LOC: JP.ED 06:47
DX: R11.2 Nausea with vomiting, unspecified (principal); Z88.0 Allergy status to penicillin; Z79.899 Other long term (current) drug therapy; F17.210 Nicotine dependence, cigarettes, uncomplicated
CPT/HCPCS: 36415; 80048; 83690; 85025; 96361; 96374; 96375; 99284; J2060; J2765; J7030

== ENCOUNTER 2021-03-21 16:59 | Emergency (ER) | payer MEDICAID ==
[2021-03-21] MEDS ORDERED: Sodium Chloride 0.9% 10 ML Syringe FLUSH PRN (17:03)
[2021-03-21] MEDS ORDERED: fentaNYL 100 MCG/2 ML SDV IVPUSH ONE (17:03)
[2021-03-21] MEDS ORDERED: LORazepam 2 MG/ML SDV IVPUSH ONE (17:04)
[2021-03-21 17:07] VITALS: BP 118/73; PULSE 94
--- NOTE | 2021-03-21 17:07 | EDM.PDOC ---
ED HPI GENERAL MEDICAL PROBLEM - General Stated Complaint: HEADACHE'S Time Seen by Provider: 03/21/21 17:02 Source of Information: Reports: Patient, RN Notes Reviewed History Limitations: Reports: No Limitations - History of Present Illness INITIAL COMMENTS - FREE TEXT/NARRATIVE: 35-year-old gentleman presents emergency department day complaint of worst headache of his life, states just awoke with this headache started vomiting. Was feeling fine yesterday no other complaints he is quite anxious about needles - Related Data Allergies Allergy/AdvReac Type Severity Reaction Status Date / Time Penicillins Allergy Hives Verified 07/31/17 21:46 Home Meds: Home Meds Omeprazole Magnesium [Prilosec Otc] 20 mg PO DAILY 07/31/17 [History] Past Medical History Cardiovascular History: Reports: Heart Murmur Gastrointestinal History: Reports: GERD Other Gastrointestinal History: GERD, story's esophagus Musculoskeletal History: Reports: Arthritis, Back Pain, Chronic, Fracture Neurological History: Reports: Concussion Psychiatric History: Reports: ADD, ADHD, Bipolar, Depression, Schizophrenia - Infectious Disease History Infectious Disease History: Reports: Chicken Pox, Shingles Social & Family History - Caffeine Use Caffeine Use: Reports: Coffee, Soda ED ROS GENERAL - Review of Systems Review Of Systems: See Below Constitutional: Reports: No Symptoms HEENT: Reports: No Symptoms Respiratory: Reports: No Symptoms Cardiovascular: Reports: No Symptoms GI/Abdominal: Reports: No Symptoms Neurological: Reports: Headache Psychiatric: Reports: Anxiety - Physical Exam Exam: See Below Exam Limited By: No Limitations General Appearance: Alert, Mild Distress Eye Exam: Bilateral Eye: EOMI, Normal Fundi, PERRL Head Exam: Atraumatic, Normocephalic Neck: Normal Inspection, Supple, Non-Tender, Full Range of Motion Respiratory/Chest: No Respiratory Distress, Lungs Clear, Normal Breath Sounds, No Accessory Muscle Use, Chest Non-Tender Cardiovascular: Regular Rate, Rhythm, No Murmur GI/Abdominal: Soft, Non-Tender Neuro Exam (Abbreviated): Alert, Oriented, CN II-XII Intact, Normal Cognition, Normal Gait, No Motor/Sensory Deficits Course - Vital Signs Last Recorded V/S: Last Vital Signs Temp 100.4 F 03/21/21 17:03 Pulse 94 03/21/21 17:03 Resp 22 H 03/21/21 17:03 BP 118/73 03/21/21 17:03 Pulse Ox 100 11/25/21 17:03 - Orders/Labs/Meds Orders: Active Orders 24 hr Category Date Time Status Peripheral IV Care [RC] . DIRECTED Care 03/21/21 17:04 Active DRUG SCREEN, URINE [URCHEM] Stat Lab 03/21/21 17:08 Ordered Sodium Chloride 0.9% [Saline Flush] Med 03/21/21 17:03 Active 10 ml FLUSH ASDIRECTED PRN Isolation [COMM] Stat Oth 03/21/21 17:05 Ordered Peripheral IV Insertion Adult [OM.PC] Urgent Oth 03/21/21 17:03 Ordered Medication Orders Sodium Chloride (Sodium Chloride 0.9% 10 Ml Syringe) 10 ml FLUSH ASDIRECTED PRN PRN Reason: Keep Vein Open Last Admin: 03/21/21 17:16 Dose: 10 ml Documented by: ANITRA Labs: Laboratory Tests 03/21/21 03/21/21 03/21/21 Range/Units 17:03 17:03 17:03 WBC 7.7 (4.5-11.0) K/uL RBC 5.04 (4.30-5.90) M/uL Hgb 15.5 H (12.0-15.0) g/dL Hct 43.7 (40.0-54.0) % MCV 87 (80-98) fL MCH 31 (27-31) pg MCHC 36 (32-36) % Plt Count 255 (150-400) K/uL Neut % (Auto) 78.0 H (36-66) % Lymph % (Auto) 9.7 L (24-44) % [place] % (Auto) 10.3 H (2-6) % Eos % (Auto) 1.6 L (2-4) % Baso % (Auto) 0.4 (0-1) % Sodium 138 L (140-148) mmol/L Potassium 4.4 (3.6-5.2) mmol/L Chloride 100 (100-108) mmol/L Carbon Dioxide 28 (21-32) mmol/L Anion Gap 14.4 H (5.0-14.0) mmol/L BUN 11 (7-18) mg/dL Creatinine 1.1 (0.8-1.3) mg/dL Est Cr Clr Drug Dosing 103.23 mL/min Estimated GFR (MDRD) > 60 (>60) Glucose 93 (74-106) mg/dL Lactic Acid 1.6 (0.4-2.0) mmol/L Calcium 9.4 (8.5-10.1) mg/dL Total Bilirubin 0.6 (0.2-1.0) mg/dL AST 13 L (15-37) U/L ALT 19 (12-78) U/L Alkaline Phosphatase 101 (46-116) U/L Total Protein 7.5 (6.4-8.2) g/dL Albumin 4.2 (3.4-5.0) g/dL Globulin 3.3 (2.3-3.5) g/dL Albumin/Globulin Ratio 1.3 (1.2-2.2) Ethyl Alcohol mg/dL Influenza Type A RNA (NEGATIVE) RSV RNA (INAAT) (NEGATIVE) Influenza Type B RNA (NEGATIVE) SARS-CoV-2 RNA (KRIS) (NEGATIVE) 03/21/21 03/21/21 Range/Units 17:03 17:10 WBC (4.5-11.0) K/uL RBC (4.30-5.90) M/uL Hgb (12.0-15.0) g/dL Hct (40.0-54.0) % MCV (80-98) fL MCH (27-31) pg MCHC (32-36) % Plt Count (150-400) K/uL Neut % (Auto) (36-66) % Lymph % (Auto) (24-44) % [place] % (Auto) (2-6) % Eos % (Auto) (2-4) % Baso % (Auto) (0-1) % Sodium (140-148) mmol/L Potassium (3.6-5.2) mmol/L Chloride (100-108) mmol/L Carbon Dioxide (21-32) mmol/L Anion Gap (5.0-14.0) mmol/L BUN (7-18) mg/dL Creatinine (0.8-1.3) mg/dL Est Cr Clr Drug Dosing mL/min Estimated GFR (MDRD) (>60) Glucose (74-106) mg/dL Lactic Acid (0.4-2.0) mmol/L Calcium (8.5-10.1) mg/dL Total Bilirubin (0.2-1.0) mg/dL AST (15-37) U/L ALT (12-78) U/L Alkaline Phosphatase (46-116) U/L Total Protein (6.4-8.2) g/dL Albumin (3.4-5.0) g/dL Globulin (2.3-3.5) g/dL Albumin/Globulin Ratio (1.2-2.2) Ethyl Alcohol < 3 mg/dL Influenza Type A RNA Negative (NEGATIVE) RSV RNA (INAAT) Negative (NEGATIVE) Influenza Type B RNA Negative (NEGATIVE) SARS-CoV-2 RNA (KRIS) Positive H (NEGATIVE) Meds: Medications Generic Name Dose Route Start Last Admin Trade Name Freq PRN Reason Stop Dose Admin Sodium Chloride 10 ml 03/21/21 17:03 03/21/21 17:16 Sodium Chloride 0.9% 10 Ml Syringe FLUSH 10 ml ASDIRECTED PRN Administration Keep Vein Open Discontinued Medications Generic Name Dose Route Start Last Admin Trade Name Freq PRN Reason Stop Dose Admin Fentanyl 50 mcg 03/21/21 17:03 03/21/21 17:15 Fentanyl 100 Mcg/2 Ml Sdv IVPUSH 03/21/21 17:04 50 mcg ONETIME ONE Administration Lorazepam 1 mg 03/21/21 17:04 03/21/21 17:11 Lorazepam 2 Mg/Ml Sdv IVPUSH 03/21/21 17:05 1 mg ONETIME ONE Administration Departure - Departure Time of Disposition: 18:28 Disposition: Home, Self-Care 01 Condition: Fair Clinical Impression: COVID-19 - Discharge Information Instructions: 10 Things You Can Do to Manage Your COVID-19 Symptoms at Home - [facility] (11/09/2020) Referrals: PCP,None [Primary Care Provider] - Additional Instructions: Please followup with your primary care provider in 10-15 days if not better, please call return to the emergency department with worsening of symptoms. Sepsis Event Note (ED) - Focused Exam Vital Signs: Vital Signs Temp Pulse Resp BP Pulse Ox 03/21/21 17:03 100.4 F 94 22 H 118/73 100 - My Orders Last 24 Hours: My Active Orders 03/21/21 17:03 Sodium Chloride 0.9% [Saline Flush] 10 ml FLUSH ASDIRECTED PRN Peripheral IV Insertion Adult [OM.PC] Urgent 03/21/21 17:04 Peripheral IV Care [RC] . DIRECTED 03/21/21 17:05 Isolation [COMM] Stat 03/21/21 17:08 DRUG SCREEN, URINE [URCHEM] Stat - Assessment/Plan Last 24 Hours: My Active Orders 03/21/21 17:03 Sodium Chloride 0.9% [Saline Flush] 10 ml FLUSH ASDIRECTED PRN Peripheral IV Insertion Adult [OM.PC] Urgent 03/21/21 17:04 Peripheral IV Care [RC] . DIRECTED 03/21/21 17:05 Isolation [COMM] Stat 03/21/21 17:08 DRUG SCREEN, URINE [URCHEM] Stat Plan: Assessment Acuity = acute Site and laterality = viral syndrome Etiology = COVID-19 Manifestations = none Location of injury = Home Lab values = CBC, CMP, lactic acid all within normal limits, COVID-19 positive influenza a and B- RSV negative Plan Symptomatic care follow-up primary care in 10 to 15 days, he is unsure the onset of symptoms therefore he is not a candidate for monoclonal antibody therapy This note was dictated using [employer] voice recognition software please call with any questions on syntax or grammar.
[2021-03-21 17:59] LABS: CORONAVIRUS COVID-19 NAA POSITIVE (NEGATIVE)
== END 2021-03-21 19:51 | disposition home or self-care (01) ==
LOC: JP.ED 16:59
DX: U07.1 COVID-19 (principal); K21.9 Gastro-esophageal reflux disease without esophagitis; Z79.899 Other long term (current) drug therapy; Z88.0 Allergy status to penicillin
CPT/HCPCS: 0241U; 36415; 80053; 80307; 83605; 85025; 96374; 96375; 99284; J2060; J3010

== ENCOUNTER 2023-02-17 21:33 | Emergency (ER) | payer MEDICAID ==
[2023-02-17 22:19] VITALS: BP 129/75; PULSE 85
== END 2023-02-17 23:43 | disposition home or self-care (01) ==
LOC: JP.ED 21:33
DX: R07.1 Chest pain on breathing (principal); Z88.0 Allergy status to penicillin
CPT/HCPCS: 93005; 99284

== ENCOUNTER 2024-05-17 17:37 | Emergency (ER) | payer MEDICAID ==
[2024-05-17] MEDS: Ondansetron 4 MG Tab.DIS PO ONE (18:48)
[2024-05-17 19:10] LABS: CORONAVIRUS COVID-19 NAA NEGATIVE (NEGATIVE); INFLUENZA A NAA NEGATIVE (NEGATIVE); INFLUENZA B NAA NEGATIVE (NEGATIVE); RESPIRATORY SYNCYTIAL VIR NAA NEGATIVE (NEGATIVE)
[2024-05-17] MEDS: Famotidine 20 MG Tab PO ONE (19:24)
[2024-05-17 20:56] VITALS: BP 136/88; PULSE 78
== END 2024-05-17 21:16 | disposition home or self-care (01) ==
LOC: JP.ED 17:37
DX: K21.9 Gastro-esophageal reflux disease without esophagitis (principal); J11.1 Influenza due to unidentified influenza virus with other respiratory manifestations; Z88.0 Allergy status to penicillin
CPT/HCPCS: 0241U; 71046; 99284; A9270; Q0162; 99283